=== PATIENT | male | born 1960 | race Caucasian/White ===

== ENCOUNTER 2019-11-01 09:40 | Emergency (ER) | payer BC ==
[2019-11-01 10:03] VITALS: BP 168/92
--- NOTE | 2019-11-01 11:15 | ED Physician Documentation ---
PD HPI URI - Stated complaint Stated Complaint: DIZZY,COUGH,COLD - Chief complaint Chief Complaint: General - History obtained from History obtained from: Patient - History of Present Illness Timing - onset: How many days ago (6) Timing duration: Days (6) Timing details: Gradual onset, Still present Associated symptoms: Fever, Nasal congestion, Productive cough, Dyspnea. No: Chest pain, NVD Contributing factors: Sick contact (works in [place] and was concerned about being around folk with Coronavirus.). No: Travel, Immunocompromised, COPD / asthma Similar symptoms before: Has not had sx before Recently seen: Not recently seen Review of Systems Constitutional: reports: Fever, Myalgias Nose: reports: Congestion. denies: Rhinorrhea / runny nose Throat: denies: Sore throat Cardiac: reports: Chest pain / pressure (with coughing). denies: Palpitations Respiratory: reports: Dyspnea, Cough, Wheezing GI: denies: Nausea, Vomiting, Diarrhea Neurologic: reports: Headache. denies: Confused, Altered mental status PD PAST MEDICAL HISTORY - Past Medical History Cardiovascular: None Respiratory: Asthma Neuro: None Endocrine/Autoimmune: None - Past Surgical History Past Surgical History: Yes Ortho: Knee replacement - Present Medications Home Medications: Ambulatory Orders Medication Instructions Recorded Confirmed Albuterol Sulfate [Albuterol 2 puffs IH QID #1 hfa.aer.ad 11/01/19 Sulfate Hfa] Ascorbic Acid [Vitamin C] 11/01/19 Benzonatate [Tessalon Perle] 100 - 200 mg PO TID PRN #30 capsule 11/01/19 Cholecalciferol (Vitamin D3) 11/01/19 [Vitamin D3] Doxycycline Monohydrate 100 mg PO BID #14 tablet 11/01/19 Vitamin E 11/01/19 dexAMETHasone [Decadron] 4 mg PO DAILY #7 tablet 11/01/19 - Allergies Allergies/Adverse Reactions: Allergies Allergy/AdvReac Type Severity Reaction Status Date / Time No Known Drug Allergies Allergy Verified 11/01/19 10:03 - Social History Does the pt smoke?: No Smoking Status: Never smoker Does the pt drink ETOH?: Yes Does the pt have substance abuse?: No - Immunizations Immunizations are current?: Yes - POLST Patient has POLST: No PD ED PE NORMAL - Vitals Vital signs reviewed: Yes - General General: Alert and oriented X 3, No acute distress, Well developed/nourished - HEENT HEENT: Moist mucous membranes, Pharynx benign - Neck Neck: Supple, no meningeal sign, No adenopathy - Cardiac Cardiac: RRR, No murmur - Respiratory Respiratory: Clear bilaterally - Abdomen Abdomen: Soft, Non tender - Derm Derm: Normal color, Warm and dry - Neuro Neuro: Alert and oriented X 3, No motor deficit, Normal speech Results - Vitals Vitals: Oxygen O2 Source Room air - Rads (name of study) chest xray Radiology: Prelim report reviewed (no acute cardiopulmonary disease), See rad report PD MEDICAL DECISION MAKING - ED course Complexity details: considered differential (he is concerned about COVID. He does have asthma and so concern about worse infection if had it. CXR is clear. shared decision at his request to do testing. Can give abx for presumed bronchitis symptoms in setting of asthma. ), d/w patient Departure - Departure Disposition: 01 Home, Self Care Clinical Impression: Lower respiratory infection Condition: Stable Record reviewed to determine appropriate education?: Yes Instructions: ED Upper Resp Infec Abx Tx Follow-Up: Ben Middleton MD [Primary Care Provider] - Prescriptions: Albuterol Sulfate [Albuterol Sulfate Hfa] 2 puffs IH QID #1 hfa.aer.ad Benzonatate [Tessalon Perle] 100 - 200 mg PO TID PRN #30 capsule PRN Reason: Cough dexAMETHasone [Decadron] 4 mg PO DAILY #7 tablet Doxycycline Monohydrate 100 mg PO BID #14 tablet Comments: Your chest x-ray does not show any signs of pneumonia. It does sound like either still a viral upper respiratory infection or may have developed into a bacterial bronchitis at this point. We will treated with an albuterol inhaler 2 puffs 4 times a day and extra times as needed for the next 7 to 10 days. Decadron steroid for inflammation of the airways daily as directed. Add benzonatate as needed for cough suppression. We will add in doxycycline antibiotic for potential bacterial cause. Your coronavirus test will result in a couple of days. If it is positive you will get called by many many people. Meanwhile stay at home in good cleaning and handwashing around your other family members. Discharge Date/Time: 11/01/19 12:42
[2019-11-01] MEDS ORDERED: CHERRY SYRUP 10 ML UDC PO ONE (11:30)
[2019-11-01] MEDS ORDERED: BENZONATATE 100 MG CAPSULE PO STA (11:30)
[2019-11-01] MEDS ORDERED: DEXAMETHASONE 10 MG/ML VIAL PO STA (11:30)
[2019-11-01] MEDS ORDERED: ACETAMINOPHEN 325 MG TABLET PO STA (11:32)
[2019-11-01] MEDS ORDERED: ALBUTEROL NEB 2.5 MG/3 ML INH STA (11:32)
--- NOTE | 2019-11-01 12:03 | XRAY Report ---
Reason: dyspnea/ cough Procedure Date: 11/01/2019 Accession Number: [id number] / [id number] Procedure: XR - Chest 2 View X-Ray CPT Code: 96659 Final Report FULL RESULT: EXAM: CHEST RADIOGRAPHY EXAM DATE: 11/01/2019 11:40 AM. CLINICAL HISTORY: Dyspnea and cough. COMPARISON: None. TECHNIQUE: 2 views. FINDINGS: Lungs/Pleura: Normal volumes. No focal consolidation or evidence of edema. No pleural effusion or pneumothorax. Mediastinum: Normal cardiomediastinal contour. Other: Mild degenerative changes in the spine. IMPRESSION: No acute cardiopulmonary abnormality. RADIA
== END 2019-11-01 12:42 | disposition home or self-care (01) ==
LOC: ED 09:40
DX: J22 Unspecified acute lower respiratory infection (principal); B97.29 Other coronavirus as the cause of diseases classified elsewhere; J45.909 Unspecified asthma, uncomplicated
CPT/HCPCS: 71046; 81599; 94640; 94664; 99283; 99284; A9270

== ENCOUNTER 2024-02-27 21:52 | Emergency (ER) | payer BC ==
--- NOTE | 2024-02-27 22:27 | ED Physician Documentation ---
PD HPI URI - Stated complaint Stated Complaint: FEVER/CHILLS/WEAK - Chief complaint Chief Complaint: General - History obtained from History obtained from: Patient, Family - History of Present Illness Pain level max: 0 Pain level now: 0 Associated symptoms: Fever, Chills, Nasal congestion, Rhinorrhea, Dry cough Contributing factors: Sick contact Recently seen: Not recently seen - Additional information Additional information: Patient is a 63-year-old male who presents to the emergency department with rhinorrhea, cough and congestion. Ongoing for the past 2 days. Tmax 102.4 at home. He had chills 2 days ago, none now. Took a dose of amoxicillin at home that was left over. No shortness of breath. No abdominal pain, nausea, vomiting. His states that his lungs seemed "tighter" than usual. Complains of generalized bodyaches and generalized weakness. Review of Systems Respiratory: reports: Cough GI: denies: Vomiting, Diarrhea PD PAST MEDICAL HISTORY - Past Medical History Past Medical History: Yes Cardiovascular: None Respiratory: Asthma Neuro: None Endocrine/Autoimmune: None - Past Surgical History Past Surgical History: Yes Ortho: Knee replacement - Present Medications Home Medications: Ambulatory Orders Medication Instructions Recorded Confirmed Albuterol Sulfate [Albuterol 2 puffs IH QID #1 hfa.aer.ad 11/01/19 Sulfate Hfa] Ascorbic Acid [Vitamin C] 11/01/19 Benzonatate [Tessalon Perle] 100 - 200 mg PO TID PRN #30 capsule 11/01/19 Cholecalciferol (Vitamin D3) 11/01/19 [Vitamin D3] Doxycycline Monohydrate 100 mg PO BID #14 tablet 11/01/19 Vitamin E (Dl,Tocopheryl Acet) 11/01/19 [Vitamin E] dexAMETHasone [Decadron] 4 mg PO DAILY #7 tablet 11/01/19 Azithromycin [Zithromax] 250 mg PO DAILY #4 tablet 02/27/24 Benzonatate [Tessalon] 200 mg PO TID PRN #30 cap 02/27/24 - Allergies Allergies/Adverse Reactions: Allergies Allergy/AdvReac Type Severity Reaction Status Date / Time No Known Drug Allergies Allergy Verified 02/27/24 22:01 - Social History Does the pt smoke?: No Smoking Status: Never smoker Does the pt drink ETOH?: Yes Does the pt have substance abuse?: No - Immunizations Immunizations are current?: Yes - POLST Patient has POLST: No PD ED PE NORMAL - Vitals Vital signs reviewed: Yes - General General: Alert and oriented X 3, No acute distress - HEENT HEENT: PERRL, Moist mucous membranes - Neck Neck: Supple, no meningeal sign - Cardiac Cardiac: RRR, Strong equal pulses - Respiratory Respiratory: No respiratory distress, Clear bilaterally - Abdomen Abdomen: Soft, Non tender, Non distended - Back Back: No CVA TTP, No spinal TTP - Derm Derm: Warm and dry, No rash - Neuro Neuro: Alert and oriented X 3 - Psych Psych: Normal mood, Normal affect Results - Vitals Vitals: Vital Signs - 24 hr 02/27/24 02/27/24 02/27/24 21:58 22:09 23:23 Temperature 37.9 C Heart Rate 86 77 71 Respiratory 16 18 18 Rate Blood Pressure 146/95 H 163/87 H 156/82 H O2 Saturation 96 97 95 Oxygen O2 Source Room air - Labs Labs: Laboratory Tests 02/27/24 02/27/24 02/27/24 22:04 22:33 22:33 WBC 8.9 RBC 6.06 Hgb 16.9 Hct 48.0 MCV 79.2 L MCH 27.9 MCHC 35.2 RDW 12.0 Plt Count 155 MPV 9.8 Neut # (Auto) 6.6 Lymph # (Auto) 1.1 L [place] # (Auto) 1.2 H Eos # (Auto) 0.0 Baso # (Auto) 0.0 Absolute Nucleated RBC 0.00 Nucleated RBC % 0.0 Sodium 127 L Potassium 3.7 Chloride 97 L Carbon Dioxide 22 Anion Gap 8.0 BUN 18 Creatinine 1.1 Estimated GFR (MDRD) 67 L Glucose 115 H Calcium 9.7 Total Bilirubin 0.8 AST 34 ALT 33 Alkaline Phosphatase 34 L Total Protein 7.3 Albumin 4.3 Globulin 3.0 Albumin/Globulin Ratio 1.4 Lipase 31 Nasal Adenovirus (PCR) NOT DETECTED Nasal B. parapertussis DNA (PCR) NOT DETECTED Nasal Coronavir 229E PCR NOT DETECTED Nasal Coronavir HKU1 PCR NOT DETECTED Nasal Coronavir NL63 PCR NOT DETECTED Nasal Coronavir OC43 PCR NOT DETECTED Nasal Enterovir/Rhinovir PCR NOT DETECTED Nasal Influenza B PCR NOT DETECTED Nasal Influenza A PCR NOT DETECTED Nasal Parainfluen 1 PCR NOT DETECTED Nasal Parainfluen 2 PCR NOT DETECTED Nasal Parainfluen 3 PCR NOT DETECTED Nasal Parainfluen 4 PCR NOT DETECTED Nasal RSV (PCR) NOT DETECTED Nasal B.pertussis DNA PCR NOT DETECTED Nasal C.pneumoniae (PCR) NOT DETECTED Shalom Human Metapneumo PCR NOT DETECTED Nasal M.pneumoniae (PCR) DETECTED A Nasal SARS-CoV-2 (PCR) NOT DETECTED - Rads (name of study) cxr Relevant Findings:: Final report received, See rad report PD Medical Decision Making - ED course Complexity details: reviewed results, re-evaluated patient, considered differential, d/w patient ED course: Patient with mycoplasma pneumonia. Given that he has had fevers, we will place him on azithromycin. No hypoxia or respiratory distress here. He feels better after IV fluids. Did have hyponatremia, but not severe. No evidence of sepsis. Tolerating PO without difficulty. We will have him follow up with his doctor for further care. Patient counseled regarding signs and symptoms for which I believe an urgent re-evaluation would be necessary. Patient with good understanding of and agreement to plan and is comfortable going home at this time. This document was made in part using voice recognition software. While efforts are made to proofread this document, sound alike and grammatical errors may occur. Departure - Departure Disposition: 01 Home, Self Care Clinical Impression: Dehydration, Hyponatremia Mycoplasma pneumonia Qualifiers: Laterality: unspecified laterality Lung location: unspecified part of lung Qualified Code(s): J15.7 - Pneumonia due to Mycoplasma pneumoniae Condition: Good Instructions: ED Pneumonia Adult Follow-Up: your,doctor in 1 week [Other] Prescriptions: Benzonatate [Tessalon] 200 mg PO TID PRN #30 cap PRN Reason: Cough Azithromycin [Zithromax] 250 mg PO DAILY #4 tablet Comments: You have tested positive for mycoplasma pneumonia today. Take the azithromycin until gone. You were given IV fluids today as you were dehydrated as well. Your sodium levels were mildly low, these can be rechecked with your doctor in a week. Please return if you worsen. Your prescriptions were sent to [facility] in [place]. Forms: PCP List Discharge Date/Time: 02/27/24 23:23
[2024-02-27 22:37] LABS: BASOPHILS % (AUTO) 0.4 %; HGB - HEMOGLOBIN 16.9 g/dL (14.0-18.0); LYMPHOCYTES # (AUTO) 1.1 10^3/uL (1.5-3.5); LYMPHOCYTES % (AUTO) 11.8 %; MEAN CORPUSCULAR HEMOGLOBIN 27.9 pg (27.0-31.0); MEAN CORPUSCULAR HGB CONC 35.2 g/dL (32.0-36.0); MEAN CORPUSCULAR VOLUME 79.2 fL (80.0-94.0); MEAN PLATELET VOLUME 9.8 fL (7.4-11.4); MONOCYTES # (AUTO) 1.2 10^3/uL (0.0-1.0); NEUTROPHILS # (AUTO) 6.6 10^3/uL (1.5-6.6); NEUTROPHILS % (AUTO) 74.5 %; PLT - PLATELET COUNT 155 10^3/uL (130-450); RED BLOOD COUNT 6.06 10^6/uL (4.70-6.10); WHITE BLOOD COUNT 8.9 x10^3/uL (4.8-10.8)
[2024-02-27] MEDS: SODIUM CHLORIDE 0.9% 1,000 ML IV STA ×2 (22:38)
[2024-02-27 22:53] LABS: ALBUMIN 4.3 g/dL (3.2-5.5); ALBUMIN/GLOBULIN RATIO 1.4 (1.0-2.2); BILIRUBIN,TOTAL 0.8 mg/dL (0.2-1.0); CALCIUM 9.7 mg/dL (8.5-10.3); CREATININE 1.1 mg/dL (0.6-1.3); POTASSIUM 3.7 mmol/L (3.5-4.5); TOTAL PROTEIN 7.3 g/dL (6.4-8.9)
[2024-02-27 23:00] LABS: B. PARAPERTUSSIS- RESP PCR PAN NOT DETECTED; B. PERTUSSIS- RESP PCR PANEL NOT DETECTED; C. PNEUMONIAE- RESP PCR PANEL NOT DETECTED; CORONAVIRUS 229E-RESP PCR NOT DETECTED; CORONAVIRUS HKU1-RESP PCR NOT DETECTED; CORONAVIRUS NL63-RESP PCR NOT DETECTED; CORONAVIRUS OC43-RESP PCR NOT DETECTED; HUMAN METAPNEUMOVIRUS NOT DETECTED; INFLUENZA A- RESP PCR PANEL NOT DETECTED; INFLUENZA B - RESP PCR PANEL NOT DETECTED; M. PNEUMONIAE- RESP PCR PANEL DETECTED; PARAINFLUENZA VIRUS 1 NOT DETECTED; PARAINFLUENZA VIRUS 2 NOT DETECTED; PARAINFLUENZA VIRUS 3 NOT DETECTED; PARAINFLUENZA VIRUS 4 NOT DETECTED; RHINOVIRUS/ENTEROVIRUS NOT DETECTED; RSV- RESP PCR PANEL NOT DETECTED; SARS-CoV-2 -RESP PCR PANEL NOT DETECTED
[2024-02-27] MEDS: BENZONATATE 100 MG CAPSULE PO STA (23:17)
[2024-02-27] MEDS: AZITHROMYCIN 250 MG TABLET PO STA (23:17)
[2024-02-27 23:32] VITALS: BP 156/82; O2SAT 95
--- NOTE | 2024-02-28 00:16 | XRAY Report ---
PROCEDURE: Chest 2V INDICATIONS: cough TECHNIQUE: 2 views of the chest were acquired. COMPARISON: Chest radiograph 11/01/2019. FINDINGS: Surgical changes and devices: None. Lungs and pleura: No pleural effusions or pneumothorax. Lungs are clear. Mediastinum: Mediastinal contours appear normal. Heart size is normal. Bones and chest wall: No suspicious bony lesions. Overlying soft tissues appear unremarkable. IMPRESSION: No acute cardiopulmonary process. Reviewed by: Geno Pace MD, PhD on 02/28/2024 12:15 AM PDT Approved by: Geno Pace MD, PhD on 02/28/2024 12:15 AM PDT Station ID: [id number]
== END 2024-02-27 23:23 | disposition home or self-care (01) ==
LOC: ED 21:52
DX: J15.7 Pneumonia due to Mycoplasma pneumoniae (principal); E86.0 Dehydration; E87.1 Hypo-osmolality and hyponatremia; J45.909 Unspecified asthma, uncomplicated; Z79.899 Other long term (current) drug therapy
CPT/HCPCS: 36415; 71046; 80053; 83690; 85025; 87633; 96360; 99284; A9270

== ENCOUNTER 2024-03-25 07:45 | Outpatient (CLI) | payer BC ==
--- NOTE | 2024-03-25 15:58 | XRAY Report ---
PROCEDURE: Chest 2V INDICATIONS: SHORTNESS OF BREATH TECHNIQUE: 2 views of the chest were acquired. COMPARISON: None. FINDINGS: Surgical changes and devices: None. Lungs and pleura: No pleural effusions or pneumothorax. Lungs are clear. Mediastinum: Mediastinal contours appear normal. Heart size is normal. Bones and chest wall: No suspicious bony lesions. Overlying soft tissues appear unremarkable. IMPRESSION: No acute cardiopulmonary process. Reviewed by: Braulio Garcia MD on 03/25/2024 3:57 PM PDT Approved by: Braulio Garcia MD on 03/25/2024 3:57 PM PDT Station ID: [id number]
== END 2024-03-25 08:00 | disposition home or self-care (01) ==
LOC: DI.N 07:45
PROVIDERS: ATTEND Physician Assistant Medical
DX: R06.02 Shortness of breath (principal)